=== PATIENT | male | born 1980 | race Caucasian/White ===

== ENCOUNTER 2017-10-05 22:50 | Observation (INO) | payer MEDICAID ==
[~2017-10-05] VITALS: Ht 175.3 cm; Wt 80.3 kg
[~2017-10-05 22:50] MED LIST: ABILIFY MAINTENA IM; ARIP10TA33 PO; ARIP15TA3 PO; ARIP20TA5 PO; CARB200T4 PO; DOXE10CA PO; FEXO1TAB PO; GABA300C10 PO; HYDR50CA2 PO; INSU100C SQ-INSULIN; INSU100I18 SQ-INSULIN; INSU100V8 SQ; METF500T PO; METF500T5 PO; SIMV40TA3 PO; ZIPR40CA2 PO
[2017-10-05] MEDS ORDERED: LORazepam 1MG TABLET PO ONE (23:30)
[2017-10-05 23:38] LABS: BASOPHILS # (AUTO) 0.09 x10^3/uL (0-0.1); BASOPHILS % (AUTO) 1 % (0-1); EOSINOPHILS # (AUTO) 0.29 x10^3/uL (0-0.4); EOSINOPHILS % (AUTO) 3 % (1-7); LYMPHOCYTES # (AUTO) 2.44 x10^3/uL (1-3.4); LYMPHOCYTES % (AUTO) 25 % (22-44); MD NO; MEAN CORPUSCULAR HEMOGLOBIN 30.7 pg (27.5-34.5); MEAN CORPUSCULAR HGB CONC 34.1 g/dL (33.2-36.2); MONOCYTES # (AUTO) 0.74 x10^3/uL (0.2-0.8); MONOCYTES % (AUTO) 8 % (2-9); NEUTROPHILS # (AUTO) 6.28 x10^3/uL (1.8-6.8); NEUTROPHILS % (AUTO) 64 % (42-75); PLATELET COUNT 257 x10^3/uL (130-400); RED CELL DISTRIBUTION WIDTH 14.2 % (9.4-14.8)
[2017-10-05 23:48] LABS: ALANINE AMINOTRANSFERASE 40 U/L (12-78); ALBUMIN 3.6 g/dL (3.4-5.0); ANION GAP 3 mmol/L (5-15); CALCIUM 8.7 mg/dL (8.5-10.1); CHLORIDE 106 mmol/L (98-107); CREATININE 1.02 mg/dL (0.7-1.3); SALICYLATE LEVEL 2.4 mg/dL (2.8-20.0)
[2017-10-05 23:49] LABS: AMPHETAMINE SCREEN, URINE Negative (Negative); BARBITURATE SCREEN, URINE Negative (Negative); BENZODIAZEPINE SCREEN, URINE Negative (Negative); CANNABINOID SCREEN, URINE Positive (Negative); COCAINE SCREEN, URINE Negative (Negative); METHADONE SCREEN, URINE Negative (Negative); OPIATE SCREEN, URINE Negative (Negative)
[2017-10-05 23:50] LABS: ALKALINE PHOSPHATASE 79 U/L (45-117); BILIRUBIN,TOTAL 0.3 mg/dL (0.2-1.0); TOTAL PROTEIN 6.8 g/dL (6.4-8.2)
[2017-10-05 23:55] LABS: ACETAMINOPHEN < 2 mcg/mL (10-30)
[2017-10-06] MEDS ORDERED: BISACODYL 10 MG SUPP PR PRN (08:30)
[2017-10-06] MEDS ORDERED: LORazepam 1MG TABLET PO PRN (08:30)
[2017-10-06] MEDS ORDERED: ONDANSETRON ODT 4 MG PO PRN (08:30)
[2017-10-06] MEDS ORDERED: POLYETHYLENE GLYCOL 17 GM PACKET PO PRN (08:30)
[2017-10-06] MEDS ORDERED: ACETAMINOPHEN 325 MG TABLET PO PRN (08:30)
[2017-10-06] MEDS ORDERED: DOCUSATE 100 MG CAPSULE PO PRN (08:30)
[2017-10-06] MEDS ORDERED: ARIPIPRAZOLE 10 MG TABLET PO PRN (08:30)
[2017-10-06 10:10] VITALS: BP 132/86
[2017-10-06] MEDS: INSULIN REGULAR 100 UNITS/ML, 3ML VIAL SQ-INSULIN SCH ×3 (12:34→20:12)
[2017-10-06] MEDS: metFORMIN 500 MG TABLET PO SCH (17:32)
[2017-10-06 19:20] VITALS: BP 97/61
[2017-10-06] MEDS ORDERED: INSULIN GLARGINE 100 UNITS/ML, PEN SQ-INSULIN SCH (21:00)
[2017-10-07] MEDS: INSULIN REGULAR 100 UNITS/ML, 3ML VIAL SQ-INSULIN SCH ×2 (07:00→11:00)
[2017-10-07] MEDS: metFORMIN 500 MG TABLET PO SCH (07:35)
[2017-10-07 07:55] VITALS: BP 124/73
== END 2017-10-07 13:30 ==
LOC: ED 23:46 → EDIP 10-06 07:58 → 2N 10-06 10:08
PROVIDERS: ADMIT Hospitalist; ATTEND Hospitalist
DX: R45.851 Suicidal ideations (principal); E03.9 Hypothyroidism, unspecified; I11.9 Hypertensive heart disease without heart failure; E78.5 Hyperlipidemia, unspecified; E11.65 Type 2 diabetes mellitus with hyperglycemia; E78.00 Pure hypercholesterolemia, unspecified; F12.90 Cannabis use, unspecified, uncomplicated; F17.210 Nicotine dependence, cigarettes, uncomplicated; F25.9 Schizoaffective disorder, unspecified; F31.9 Bipolar disorder, unspecified; R45.850 Homicidal ideations; Z82.5 Family history of asthma and other chronic lower respiratory diseases; Z83.3 Family history of diabetes mellitus; Z91.5 Personal history of self-harm; Z79.4 Long term (current) use of insulin
CPT/HCPCS: 36415; 80053; 80307; 80329; 82962; 84443; 85025; 96372; 99285; G0378; J1815; G0480

== ENCOUNTER 2017-11-24 23:35 | Observation (INO) | payer MEDICAID ==
[~2017-11-24] VITALS: Ht 175.3 cm; Wt 80.5 kg
[~2017-11-24 23:35] MED LIST changes: +METF500T17 PO; -METF500T5 PO
[2017-11-24] MEDS ORDERED: ZIPRASIDONE 20MG CAPSULE ONE (23:58)
[2017-11-25] MEDS ORDERED: ZIPRASIDONE 20MG CAPSULE PO ONE
[2017-11-25 00:12] LABS: BASOPHILS # (AUTO) 0.09 x10^3/uL (0-0.1); BASOPHILS % (AUTO) 1 % (0-1); EOSINOPHILS # (AUTO) 0.16 x10^3/uL (0-0.4); EOSINOPHILS % (AUTO) 2 % (1-7); LYMPHOCYTES % (AUTO) 31 % (22-44); MD NO; MEAN CORPUSCULAR HEMOGLOBIN 30.6 pg (27.5-34.5); MEAN CORPUSCULAR HGB CONC 34.2 g/dL (33.2-36.2); MEAN CORPUSCULAR VOLUME 89.6 fL (81-97); MEAN PLATELET VOLUME 8.2 fL (7.4-10.4); MONOCYTES # (AUTO) 0.66 x10^3/uL (0.2-0.8); MONOCYTES % (AUTO) 6 % (2-9); NEUTROPHILS # (AUTO) 6.42 x10^3/uL (1.8-6.8); NEUTROPHILS % (AUTO) 60 % (42-75); PLATELET COUNT 281 x10^3/uL (130-400); RED BLOOD COUNT 5.66 x10^6/uL (4.38-5.82); RED CELL DISTRIBUTION WIDTH 12.7 % (9.4-14.8)
[2017-11-25 00:20] LABS: ALANINE AMINOTRANSFERASE 34 U/L (12-78); ALBUMIN 3.9 g/dL (3.4-5.0); ANION GAP 8 mmol/L (5-15); CALCIUM 9.1 mg/dL (8.5-10.1); CHLORIDE 101 mmol/L (98-107); CREATININE 0.92 mg/dL (0.7-1.3); SALICYLATE LEVEL 2.5 mg/dL (2.8-20.0)
[2017-11-25 00:22] LABS: AMPHETAMINE SCREEN, URINE Negative (Negative); BARBITURATE SCREEN, URINE Negative (Negative); BENZODIAZEPINE SCREEN, URINE Negative (Negative); CANNABINOID SCREEN, URINE Negative (Negative); COCAINE SCREEN, URINE Negative (Negative); METHADONE SCREEN, URINE Negative (Negative); OPIATE SCREEN, URINE Negative (Negative)
[2017-11-25 00:22] LABS: ALKALINE PHOSPHATASE 146 U/L (45-117); BILIRUBIN,TOTAL 0.3 mg/dL (0.2-1.0); TOTAL PROTEIN 7.9 g/dL (6.4-8.2)
[2017-11-25 00:24] LABS: ACETAMINOPHEN < 2 mcg/mL (10-30)
[2017-11-25] MEDS ORDERED: POLYETHYLENE GLYCOL 17 GM PACKET PO PRN (05:30)
[2017-11-25] MEDS ORDERED: ACETAMINOPHEN 325 MG TABLET PO PRN (05:30)
[2017-11-25] MEDS ORDERED: ZIPRASIDONE 20 MG INJ IM PRN (05:30)
[2017-11-25 05:55] VITALS: BP 98/62
[2017-11-25] MEDS ORDERED: HOLD COUMADIN MC PRN (08:00)
[2017-11-25 08:14] VITALS: BP 106/67
[2017-11-25] MEDS: INSULIN REGULAR 100 UNITS/ML, 3ML VIAL SQ-INSULIN SCH ×4 (08:29→20:59)
[2017-11-25] MEDS: metFORMIN 500 MG TABLET PO SCH (16:46)
[2017-11-25 19:17] VITALS: BP 119/77
[2017-11-25] MEDS: ONDANSETRON ODT 4 MG PO PRN (19:41)
[2017-11-25] MEDS: INSULIN GLARGINE 100 UNITS/ML, PEN SQ-INSULIN SCH (20:59)
[2017-11-26 08:00] VITALS: BP 133/83
[2017-11-26] MEDS: INSULIN REGULAR 100 UNITS/ML, 3ML VIAL SQ-INSULIN SCH ×4 (08:12→21:00)
[2017-11-26] MEDS: metFORMIN 500 MG TABLET PO SCH ×2 (08:19→17:00)
[2017-11-26] MEDS: ONDANSETRON ODT 4 MG PO PRN (14:34)
[2017-11-26 19:44] VITALS: BP 115/77
[2017-11-26] MEDS: INSULIN GLARGINE 100 UNITS/ML, PEN SQ-INSULIN SCH (21:00)
== END 2017-11-27 00:30 ==
LOC: ED 11-25 01:05 → EDIP 11-25 01:10 → ED 11-25 01:21 → 2N 11-25 05:53
PROVIDERS: ADMIT Hospitalist; ATTEND Hospitalist
DX: R45.851 Suicidal ideations (principal); E03.9 Hypothyroidism, unspecified; E11.9 Type 2 diabetes mellitus without complications; E78.00 Pure hypercholesterolemia, unspecified; F25.9 Schizoaffective disorder, unspecified; F31.9 Bipolar disorder, unspecified; F41.9 Anxiety disorder, unspecified; I10 Essential (primary) hypertension
CPT/HCPCS: 36415; 80053; 80307; 80329; 82962; 83036; 85025; 96372; 99285; G0378; J1815; Q0162; G0480

== ENCOUNTER 2017-12-11 07:47 | Emergency (ER) | payer MEDICAID ==
[~2017-12-11] VITALS: Ht 175.3 cm; Wt 71.9 kg
[2017-12-11] MEDS ORDERED: ZIPRASIDONE 20 MG INJ IM ONE ×2 (08:00→08:21)
[2017-12-11 08:17] LABS: BASOPHILS # (AUTO) 0.04 x10^3/uL (0-0.1); BASOPHILS % (AUTO) 0 % (0-1); EOSINOPHILS % (AUTO) 0 % (1-7); LYMPHOCYTES # (AUTO) 1.87 x10^3/uL (1-3.4); LYMPHOCYTES % (AUTO) 11 % (22-44); MD NO; MEAN CORPUSCULAR HEMOGLOBIN 29.7 pg (27.5-34.5); MEAN CORPUSCULAR HGB CONC 33.8 g/dL (33.2-36.2); MEAN CORPUSCULAR VOLUME 88.1 fL (81-97); MEAN PLATELET VOLUME 7.4 fL (7.4-10.4); MONOCYTES # (AUTO) 0.89 x10^3/uL (0.2-0.8); MONOCYTES % (AUTO) 5 % (2-9); NEUTROPHILS # (AUTO) 14.76 x10^3/uL (1.8-6.8); NEUTROPHILS % (AUTO) 84 % (42-75); PLATELET COUNT 318 x10^3/uL (130-400); RED BLOOD COUNT 5.89 x10^6/uL (4.38-5.82); RED CELL DISTRIBUTION WIDTH 12.4 % (9.4-14.8)
[2017-12-11 08:29] LABS: ALBUMIN 4.2 g/dL (3.4-5.0); ANION GAP 14 mmol/L (5-15); CALCIUM 9.2 mg/dL (8.5-10.1); CHLORIDE 104 mmol/L (98-107)
[2017-12-11 08:30] LABS: SALICYLATE LEVEL < 1.7 mg/dL (2.8-20.0)
[2017-12-11] MEDS ORDERED: PLEASE ENTER HEIGHT AND WEIGHT MC SCH (08:30)
[2017-12-11 08:32] LABS: ALANINE AMINOTRANSFERASE 60 U/L (12-78); ALKALINE PHOSPHATASE 91 U/L (45-117); BILIRUBIN,TOTAL 0.4 mg/dL (0.2-1.0); CREATININE 0.84 mg/dL (0.7-1.3); TOTAL PROTEIN 8.2 g/dL (6.4-8.2)
[2017-12-11 08:34] LABS: ACETAMINOPHEN < 2 mcg/mL (10-30)
[2017-12-11 08:38] LABS: AMPHETAMINE SCREEN, URINE Negative (Negative); BARBITURATE SCREEN, URINE Negative (Negative); BENZODIAZEPINE SCREEN, URINE Negative (Negative); CANNABINOID SCREEN, URINE Negative (Negative); COCAINE SCREEN, URINE Negative (Negative); METHADONE SCREEN, URINE Negative (Negative); OPIATE SCREEN, URINE Negative (Negative)
[2017-12-11 09:00] LABS: MICROSCOPIC INDICATED
[2017-12-11 09:15] LABS: CULTURE INDICATED? NO
[2017-12-11 12:28] LABS: BASOPHILS # (AUTO) 0.07 x10^3/uL (0-0.1); BASOPHILS % (AUTO) 1 % (0-1); EOSINOPHILS # (AUTO) 0.02 x10^3/uL (0-0.4); EOSINOPHILS % (AUTO) 0 % (1-7); LYMPHOCYTES # (AUTO) 2.79 x10^3/uL (1-3.4); LYMPHOCYTES % (AUTO) 20 % (22-44); MD NO; MEAN CORPUSCULAR HEMOGLOBIN 30.4 pg (27.5-34.5); MEAN CORPUSCULAR HGB CONC 34.1 g/dL (33.2-36.2); MEAN CORPUSCULAR VOLUME 89.2 fL (81-97); MEAN PLATELET VOLUME 7.8 fL (7.4-10.4); MONOCYTES # (AUTO) 1.03 x10^3/uL (0.2-0.8); MONOCYTES % (AUTO) 7 % (2-9); NEUTROPHILS # (AUTO) 10.44 x10^3/uL (1.8-6.8); NEUTROPHILS % (AUTO) 73 % (42-75); PLATELET COUNT 301 x10^3/uL (130-400); RED BLOOD COUNT 5.48 x10^6/uL (4.38-5.82); RED CELL DISTRIBUTION WIDTH 12.5 % (9.4-14.8)
[2017-12-11] MEDS ORDERED: LORazepam 1MG TABLET PO ONE (13:00)
[2017-12-11 14:18] VITALS: BP 131/72
== END 2017-12-11 14:25 | disposition home or self-care (01) ==
LOC: ED 08:48
DX: F20.9 Schizophrenia, unspecified (principal); F29 Unspecified psychosis not due to a substance or known physiological condition; F32.9 Major depressive disorder, single episode, unspecified; F17.200 Nicotine dependence, unspecified, uncomplicated
CPT/HCPCS: 36415; 80053; 80307; 80329; 81001; 85025; 96372; 99284; J3486; G0480

== ENCOUNTER 2017-12-12 19:35 | Emergency (ER) | payer MEDICAID ==
[~2017-12-12] VITALS: Ht 172.7 cm; Wt 81.7 kg
[2017-12-12 22:19] VITALS: BP 150/72
[2017-12-23] MEDS ORDERED: INSU100I13 SQ-INSULIN (11:51)
[2017-12-23] MEDS ORDERED: LURA20TA PO (11:51)
[2017-12-23] MEDS ORDERED: IBUP-1484 PO (11:51)
[2017-12-23] MEDS ORDERED: LORA-446 PO (11:51)
[2017-12-23] MEDS ORDERED: INSU100I11 SQ-INSULIN (11:51)
[2017-12-23] MEDS ORDERED: ARIP10TA33 PO (11:51)
[2017-12-23] MEDS ORDERED: METF500T PO (11:51)
== END 2017-12-12 22:23 | disposition home or self-care (01) ==
LOC: ED 22:16
DX: F20.9 Schizophrenia, unspecified (principal); Z72.9 Problem related to lifestyle, unspecified; F31.9 Bipolar disorder, unspecified; Z88.8 Allergy status to other drugs, medicaments and biological substances
CPT/HCPCS: 82962; 99283; 99284

== ENCOUNTER 2018-01-07 16:42 | Observation (INO) | payer MEDICAID ==
[~2018-01-07] VITALS: Ht 175.3 cm; Wt 81.0 kg
[~2018-01-07 16:42] MED LIST changes: +IBUP-1484 PO; +INSU100I11 SQ-INSULIN; +INSU100I13 SQ-INSULIN; +LORA-446 PO; +LURA20TA PO
[2018-01-07 17:14] LABS: BASOPHILS # (AUTO) 0.06 x10^3/uL (0-0.1); BASOPHILS % (AUTO) 1 % (0-1); EOSINOPHILS # (AUTO) 0.13 x10^3/uL (0-0.4); EOSINOPHILS % (AUTO) 1 % (1-7); LYMPHOCYTES % (AUTO) 15 % (22-44); MD NO; MEAN CORPUSCULAR HEMOGLOBIN 30.2 pg (27.5-34.5); MEAN CORPUSCULAR HGB CONC 33.8 g/dL (33.2-36.2); MEAN CORPUSCULAR VOLUME 89.6 fL (81-97); MEAN PLATELET VOLUME 7.4 fL (7.4-10.4); MONOCYTES # (AUTO) 0.82 x10^3/uL (0.2-0.8); MONOCYTES % (AUTO) 6 % (2-9); NEUTROPHILS # (AUTO) 10.55 x10^3/uL (1.8-6.8); NEUTROPHILS % (AUTO) 78 % (42-75); PLATELET COUNT 326 x10^3/uL (130-400); RED BLOOD COUNT 5.17 x10^6/uL (4.38-5.82); RED CELL DISTRIBUTION WIDTH 13.2 % (9.4-14.8)
[2018-01-07] MEDS ORDERED: OLANZAPINE 5 MG TABLET PO STA (17:22)
[2018-01-07] MEDS ORDERED: OLANZAPINE 5 MG TABLET ONE (17:25)
[2018-01-07] MEDS ORDERED: LORazepam 2 MG/ML, 1ML ONE (17:25)
[2018-01-07 17:26] LABS: ALANINE AMINOTRANSFERASE 57 U/L (12-78); ALBUMIN 3.8 g/dL (3.4-5.0); ANION GAP 8 mmol/L (5-15); CHLORIDE 103 mmol/L (98-107); SALICYLATE LEVEL 1.9 mg/dL (2.8-20.0)
[2018-01-07 17:28] LABS: ALKALINE PHOSPHATASE 101 U/L (45-117); BILIRUBIN,TOTAL 0.3 mg/dL (0.2-1.0); CREATININE 0.82 mg/dL (0.7-1.3); TOTAL PROTEIN 7.5 g/dL (6.4-8.2)
[2018-01-07 17:29] LABS: ACETAMINOPHEN < 2 mcg/mL (10-30)
[2018-01-07] MEDS ORDERED: LORazepam 2 MG/ML, 1ML IM ONE (17:30)
[2018-01-07 18:03] LABS: MICROSCOPIC NOT IND
[2018-01-07 18:08] LABS: CULTURE INDICATED? NO
[2018-01-07 18:28] LABS: AMPHETAMINE SCREEN, URINE Negative (Negative); BARBITURATE SCREEN, URINE Negative (Negative); BENZODIAZEPINE SCREEN, URINE Negative (Negative); CANNABINOID SCREEN, URINE Negative (Negative); COCAINE SCREEN, URINE Negative (Negative); METHADONE SCREEN, URINE Negative (Negative); OPIATE SCREEN, URINE Negative (Negative)
[2018-01-08] MEDS ORDERED: ARIPIPRAZOLE 10 MG TABLET ONE (09:28)
[2018-01-08] MEDS ORDERED: ONDANSETRON ODT 4 MG PO PRN (09:30)
[2018-01-08] MEDS ORDERED: DOCUSATE 100 MG CAPSULE PO PRN (09:30)
[2018-01-08] MEDS ORDERED: INSULIN REGULAR 100 UNITS/ML, 3ML VIAL ONE (11:39)
[2018-01-08] MEDS: INSULIN REGULAR 100 UNITS/ML, 3ML VIAL SQ-INSULIN SCH ×3 (11:45→20:14)
[2018-01-08 16:47] VITALS: BP 128/92
[2018-01-08] MEDS: metFORMIN 500 MG TABLET PO SCH (16:59)
[2018-01-08] MEDS: IBUPROFEN 200 MG TABLET PO PRN (16:59)
[2018-01-08] MEDS: LURASIDONE 20 MG TABLET PO SCH (17:00)
[2018-01-08 19:13] VITALS: BP 109/66
[2018-01-08] MEDS: INSULIN GLARGINE 100 UNITS/ML, PEN SQ-INSULIN SCH (20:12)
[2018-01-09 05:42] LABS: BASOPHILS # (AUTO) 0.05 x10^3/uL (0-0.1); BASOPHILS % (AUTO) 1 % (0-1); EOSINOPHILS # (AUTO) 0.23 x10^3/uL (0-0.4); EOSINOPHILS % (AUTO) 4 % (1-7); LYMPHOCYTES # (AUTO) 2.39 x10^3/uL (1-3.4); LYMPHOCYTES % (AUTO) 37 % (22-44); MD NO; MEAN CORPUSCULAR HEMOGLOBIN 30.2 pg (27.5-34.5); MEAN CORPUSCULAR HGB CONC 34.2 g/dL (33.2-36.2); MEAN CORPUSCULAR VOLUME 88.5 fL (81-97); MEAN PLATELET VOLUME 7.9 fL (7.4-10.4); MONOCYTES # (AUTO) 0.49 x10^3/uL (0.2-0.8); MONOCYTES % (AUTO) 8 % (2-9); NEUTROPHILS # (AUTO) 3.29 x10^3/uL (1.8-6.8); NEUTROPHILS % (AUTO) 51 % (42-75); PLATELET COUNT 254 x10^3/uL (130-400); RED BLOOD COUNT 5.05 x10^6/uL (4.38-5.82); RED CELL DISTRIBUTION WIDTH 13.4 % (9.4-14.8)
[2018-01-09] MEDS: INSULIN REGULAR 100 UNITS/ML, 3ML VIAL SQ-INSULIN SCH ×4 (08:08→22:21)
[2018-01-09] MEDS: LURASIDONE 20 MG TABLET PO SCH ×2 (08:10→16:22)
[2018-01-09] MEDS: metFORMIN 500 MG TABLET PO SCH ×2 (08:10→16:21)
[2018-01-09] MEDS: ARIPIPRAZOLE 10 MG TABLET PO SCH (08:12)
[2018-01-09 08:29] VITALS: BP 120/78
[2018-01-09] MEDS: GABAPENTIN 100 MG CAPSULE PO SCH ×3 (12:20→22:15)
[2018-01-09 19:53] VITALS: BP 120/69
[2018-01-09] MEDS: IBUPROFEN 200 MG TABLET PO PRN (22:15)
[2018-01-09] MEDS: INSULIN GLARGINE 100 UNITS/ML, PEN SQ-INSULIN SCH (22:16)
[2018-01-10] MEDS: ACETAMINOPHEN 325 MG TABLET PO PRN (01:57)
[2018-01-10] MEDS: INSULIN REGULAR 100 UNITS/ML, 3ML VIAL SQ-INSULIN SCH ×4 (07:00→20:17)
[2018-01-10] MEDS: GABAPENTIN 100 MG CAPSULE PO SCH ×4 (07:45→20:17)
[2018-01-10] MEDS: LURASIDONE 20 MG TABLET PO SCH ×2 (07:45→16:37)
[2018-01-10] MEDS: metFORMIN 500 MG TABLET PO SCH ×2 (07:46→16:34)
[2018-01-10] MEDS: ARIPIPRAZOLE 10 MG TABLET PO SCH (07:46)
[2018-01-10] MEDS: IBUPROFEN 200 MG TABLET PO PRN ×2 (08:21→14:50)
[2018-01-10 08:38] VITALS: BP 142/86
[2018-01-10 19:55] VITALS: BP 121/73
[2018-01-10] MEDS: INSULIN GLARGINE 100 UNITS/ML, PEN SQ-INSULIN SCH (20:15)
[2018-01-11] MEDS: ACETAMINOPHEN 325 MG TABLET PO PRN ×2 (00:51→12:37)
[2018-01-11] MEDS: GABAPENTIN 100 MG CAPSULE PO SCH ×4 (07:46→20:58)
[2018-01-11 07:55] VITALS: BP 139/84
[2018-01-11] MEDS: INSULIN REGULAR 100 UNITS/ML, 3ML VIAL SQ-INSULIN SCH ×4 (07:55→20:58)
[2018-01-11] MEDS: LURASIDONE 20 MG TABLET PO SCH ×2 (08:18→16:20)
[2018-01-11] MEDS: metFORMIN 500 MG TABLET PO SCH ×2 (08:18→16:20)
[2018-01-11] MEDS: ARIPIPRAZOLE 10 MG TABLET PO SCH (08:18)
[2018-01-11] MEDS: CETIRIZINE 10 MG TABLET PO SCH (17:49)
[2018-01-11 20:36] VITALS: BP 111/67
[2018-01-11] MEDS: LORazepam 1MG TABLET PO PRN (20:58)
[2018-01-11] MEDS: INSULIN GLARGINE 100 UNITS/ML, PEN SQ-INSULIN SCH (20:58)
[2018-01-12] MEDS: IBUPROFEN 200 MG TABLET PO PRN ×3 (06:22→21:34)
[2018-01-12] MEDS: GABAPENTIN 100 MG CAPSULE PO SCH ×4 (06:35→21:08)
[2018-01-12 08:05] VITALS: BP 119/77
[2018-01-12] MEDS: INSULIN REGULAR 100 UNITS/ML, 3ML VIAL SQ-INSULIN SCH ×4 (08:16→21:08)
[2018-01-12] MEDS: metFORMIN 500 MG TABLET PO SCH ×2 (08:17→16:46)
[2018-01-12] MEDS: LURASIDONE 20 MG TABLET PO SCH ×2 (08:17→16:46)
[2018-01-12] MEDS: ARIPIPRAZOLE 10 MG TABLET PO SCH (08:17)
[2018-01-12] MEDS: CETIRIZINE 10 MG TABLET PO SCH (08:17)
[2018-01-12] MEDS: FLUTICASONE NASAL SPRAY 16GM NAS SCH (08:20)
[2018-01-12 19:58] VITALS: BP 99/61
[2018-01-12] MEDS: INSULIN GLARGINE 100 UNITS/ML, PEN SQ-INSULIN SCH (21:08)
[2018-01-13] MEDS: INSULIN REGULAR 100 UNITS/ML, 3ML VIAL SQ-INSULIN SCH ×4 (07:00→20:58)
[2018-01-13] MEDS: CETIRIZINE 10 MG TABLET PO SCH (08:05)
[2018-01-13] MEDS: GABAPENTIN 100 MG CAPSULE PO SCH ×4 (08:05→20:59)
[2018-01-13] MEDS: ARIPIPRAZOLE 10 MG TABLET PO SCH (08:05)
[2018-01-13] MEDS: metFORMIN 500 MG TABLET PO SCH ×2 (08:05→16:44)
[2018-01-13] MEDS: LURASIDONE 20 MG TABLET PO SCH ×2 (08:05→16:44)
[2018-01-13 08:20] VITALS: BP 112/77
[2018-01-13] MEDS: FLUTICASONE NASAL SPRAY 16GM NAS SCH (08:40)
[2018-01-13] MEDS: IBUPROFEN 200 MG TABLET PO PRN ×2 (09:22→19:34)
[2018-01-13 19:19] VITALS: BP 103/60
[2018-01-13] MEDS: INSULIN GLARGINE 100 UNITS/ML, PEN SQ-INSULIN SCH (20:59)
[2018-01-14] MEDS: LURASIDONE 20 MG TABLET PO SCH ×2 (07:37→17:31)
[2018-01-14] MEDS: GABAPENTIN 100 MG CAPSULE PO SCH ×4 (07:37→20:30)
[2018-01-14] MEDS: metFORMIN 500 MG TABLET PO SCH ×2 (07:37→17:31)
[2018-01-14] MEDS: INSULIN REGULAR 100 UNITS/ML, 3ML VIAL SQ-INSULIN SCH ×4 (07:42→20:21)
[2018-01-14 08:23] VITALS: BP 103/66
[2018-01-14] MEDS: ARIPIPRAZOLE 10 MG TABLET PO SCH (08:34)
[2018-01-14] MEDS: CETIRIZINE 10 MG TABLET PO SCH (08:34)
[2018-01-14] MEDS: FLUTICASONE NASAL SPRAY 16GM NAS SCH (09:07)
[2018-01-14 19:41] VITALS: BP 120/82
[2018-01-14] MEDS: IBUPROFEN 200 MG TABLET PO PRN (19:49)
[2018-01-14] MEDS: INSULIN GLARGINE 100 UNITS/ML, PEN SQ-INSULIN SCH (20:30)
[2018-01-14] MEDS: NEOSPORIN OINT, 15GM TP SCH (21:00)
[2018-01-15] MEDS: GABAPENTIN 100 MG CAPSULE PO SCH ×4 (05:32→20:21)
[2018-01-15 07:34] VITALS: BP 106/73
[2018-01-15] MEDS: INSULIN REGULAR 100 UNITS/ML, 3ML VIAL SQ-INSULIN SCH ×4 (07:53→20:27)
[2018-01-15] MEDS: CETIRIZINE 10 MG TABLET PO SCH (07:53)
[2018-01-15] MEDS: metFORMIN 500 MG TABLET PO SCH ×2 (07:54→16:39)
[2018-01-15] MEDS: ARIPIPRAZOLE 10 MG TABLET PO SCH (07:54)
[2018-01-15] MEDS: LURASIDONE 20 MG TABLET PO SCH ×2 (07:54→16:40)
[2018-01-15] MEDS: NEOSPORIN OINT, 15GM TP SCH ×3 (07:55→21:00)
[2018-01-15] MEDS: FLUTICASONE NASAL SPRAY 16GM NAS SCH (08:44)
[2018-01-15 19:36] VITALS: BP 110/73
[2018-01-15] MEDS: LORazepam 1MG TABLET PO PRN (20:21)
[2018-01-15] MEDS: INSULIN GLARGINE 100 UNITS/ML, PEN SQ-INSULIN SCH (20:21)
[2018-01-16] MEDS: IBUPROFEN 200 MG TABLET PO PRN (02:49)
[2018-01-16] MEDS: CETIRIZINE 10 MG TABLET PO SCH ×2 (07:23→07:59)
[2018-01-16 07:24] VITALS: BP 103/71
[2018-01-16] MEDS: INSULIN REGULAR 100 UNITS/ML, 3ML VIAL SQ-INSULIN SCH (07:58)
[2018-01-16] MEDS: LURASIDONE 20 MG TABLET PO SCH (07:58)
[2018-01-16] MEDS: NEOSPORIN OINT, 15GM TP SCH (07:59)
[2018-01-16] MEDS: GABAPENTIN 100 MG CAPSULE PO SCH (07:59)
[2018-01-16] MEDS: ARIPIPRAZOLE 10 MG TABLET PO SCH (07:59)
[2018-01-16] MEDS: metFORMIN 500 MG TABLET PO SCH (07:59)
[2018-01-16] MEDS: FLUTICASONE NASAL SPRAY 16GM NAS SCH (08:41)
== END 2018-01-16 10:31 | disposition home or self-care (01) ==
LOC: ED 17:07 → EDIP 01-08 03:36 → 2N 01-08 16:44
PROVIDERS: ADMIT Internal Medicine; ATTEND Internal Medicine
DX: F23 Brief psychotic disorder (principal); D72.829 Elevated white blood cell count, unspecified; E11.9 Type 2 diabetes mellitus without complications; I11.9 Hypertensive heart disease without heart failure; E78.5 Hyperlipidemia, unspecified; J00 Acute nasopharyngitis [common cold]; F17.210 Nicotine dependence, cigarettes, uncomplicated; E03.9 Hypothyroidism, unspecified; F25.9 Schizoaffective disorder, unspecified; F31.9 Bipolar disorder, unspecified; Z79.4 Long term (current) use of insulin; Z91.14 Patient's other noncompliance with medication regimen; Z91.83 Wandering in diseases classified elsewhere; Z83.3 Family history of diabetes mellitus; Z82.5 Family history of asthma and other chronic lower respiratory diseases
CPT/HCPCS: 36415; 80053; 80307; 80329; 81003; 82962; 84443; 85025; 96372; 99285; G0378; J1815; J2060; G0480

== ENCOUNTER 2018-01-17 12:43 | Observation (INO) | payer MEDICAID ==
[~2018-01-17] VITALS: Ht 175.3 cm; Wt 79.4 kg
[2018-01-17] MEDS ORDERED: ZIPRASIDONE 20 MG INJ IM ONE ×2 (13:30→13:44)
[2018-01-17 13:34] LABS: BASOPHILS # (AUTO) 0.14 x10^3/uL (0-0.1); BASOPHILS % (AUTO) 1 % (0-1); EOSINOPHILS # (AUTO) 0.01 x10^3/uL (0-0.4); EOSINOPHILS % (AUTO) 0 % (1-7); LYMPHOCYTES # (AUTO) 2.11 x10^3/uL (1-3.4); LYMPHOCYTES % (AUTO) 15 % (22-44); MD NO; MEAN CORPUSCULAR HEMOGLOBIN 30.2 pg (27.5-34.5); MEAN CORPUSCULAR HGB CONC 34.3 g/dL (33.2-36.2); MEAN CORPUSCULAR VOLUME 88.3 fL (81-97); MEAN PLATELET VOLUME 7.9 fL (7.4-10.4); MONOCYTES # (AUTO) 1.19 x10^3/uL (0.2-0.8); MONOCYTES % (AUTO) 8 % (2-9); NEUTROPHILS # (AUTO) 10.88 x10^3/uL (1.8-6.8); NEUTROPHILS % (AUTO) 76 % (42-75); PLATELET COUNT 290 x10^3/uL (130-400); RED BLOOD COUNT 5.56 x10^6/uL (4.38-5.82); RED CELL DISTRIBUTION WIDTH 12.9 % (9.4-14.8)
[2018-01-17 13:48] LABS: ALBUMIN 4.3 g/dL (3.4-5.0); ANION GAP 8 mmol/L (5-15); CALCIUM 9.7 mg/dL (8.5-10.1); CHLORIDE 103 mmol/L (98-107)
[2018-01-17 13:50] LABS: CREATININE 1.01 mg/dL (0.7-1.3); SALICYLATE LEVEL 1.7 mg/dL (2.8-20.0)
[2018-01-17 13:51] LABS: ACETAMINOPHEN < 2 mcg/mL (10-30)
[2018-01-17 14:03] LABS: AMPHETAMINE SCREEN, URINE Negative (Negative); BARBITURATE SCREEN, URINE Negative (Negative); BENZODIAZEPINE SCREEN, URINE Negative (Negative); CANNABINOID SCREEN, URINE Negative (Negative); COCAINE SCREEN, URINE Negative (Negative); METHADONE SCREEN, URINE Negative (Negative); OPIATE SCREEN, URINE Negative (Negative)
[2018-01-17] MEDS ORDERED: GLUCAGON 1 MG IM PRN (16:30)
[2018-01-17] MEDS ORDERED: DOCUSATE 100 MG CAPSULE PO PRN (16:30)
[2018-01-17] MEDS ORDERED: DEXTROSE 50%, 50ML SYRINGE IVPush PRN (16:30)
[2018-01-17] MEDS ORDERED: DEXTROSE 4 GM TAB.CHEW PO PRN (16:30)
[2018-01-17] MEDS ORDERED: ZIPRASIDONE 20 MG INJ IM PRN (16:30)
[2018-01-17] MEDS ORDERED: ACETAMINOPHEN 325 MG TABLET PO PRN (16:30)
[2018-01-17] MEDS ORDERED: ONDANSETRON ODT 4 MG PO PRN (16:30)
[2018-01-17] MEDS ORDERED: DIPHENHYDRAMINE 50 MG CAPSULE PO PRN (16:30)
[2018-01-17] MEDS: LURASIDONE 20 MG TABLET PO SCH (17:00)
[2018-01-17] MEDS: metFORMIN 500 MG TABLET PO SCH (17:00)
[2018-01-17] MEDS: INSULIN GLARGINE 100 UNITS/ML, PEN SQ-INSULIN SCH (19:56)
[2018-01-17] MEDS ORDERED: DIPHENHYDRAMINE 50 MG CAPSULE ONE (19:58)
[2018-01-17] MEDS: DIPHENHYDRAMINE 50 MG CAPSULE PO PRN (19:59)
[2018-01-17] MEDS: SODIUM CHLORIDE FLUSH 10ML SYR IVF SCH (21:00)
[2018-01-17] MEDS ORDERED: INSULIN LISPRO 100 UNITS/ML, PEN SQ-INSULIN SCH (21:00)
[2018-01-17] MEDS: ZIPRASIDONE 20MG CAPSULE PO PRN (22:02)
[2018-01-17] MEDS: INSULIN REGULAR 100 UNITS/ML, 3ML VIAL SQ-INSULIN SCH (22:27)
[2018-01-18] MEDS: DIPHENHYDRAMINE 50 MG CAPSULE PO PRN (01:34)
[2018-01-18 07:20] VITALS: BP 128/91
[2018-01-18 07:21] LABS: BASOPHILS # (AUTO) 0.04 x10^3/uL (0-0.1); BASOPHILS % (AUTO) 1 % (0-1); EOSINOPHILS # (AUTO) 0.14 x10^3/uL (0-0.4); EOSINOPHILS % (AUTO) 2 % (1-7); LYMPHOCYTES % (AUTO) 37 % (22-44); MD NO; MEAN CORPUSCULAR HEMOGLOBIN 29.7 pg (27.5-34.5); MEAN CORPUSCULAR HGB CONC 33.4 g/dL (33.2-36.2); MEAN PLATELET VOLUME 7.9 fL (7.4-10.4); MONOCYTES # (AUTO) 0.62 x10^3/uL (0.2-0.8); MONOCYTES % (AUTO) 10 % (2-9); NEUTROPHILS # (AUTO) 3.09 x10^3/uL (1.8-6.8); NEUTROPHILS % (AUTO) 50 % (42-75); PLATELET COUNT 265 x10^3/uL (130-400); RED BLOOD COUNT 5.52 x10^6/uL (4.38-5.82); RED CELL DISTRIBUTION WIDTH 13.1 % (9.4-14.8)
[2018-01-18] MEDS: INSULIN REGULAR 100 UNITS/ML, 3ML VIAL SQ-INSULIN SCH ×4 (08:16→20:05)
[2018-01-18] MEDS: LURASIDONE 20 MG TABLET PO SCH ×2 (08:17→16:36)
[2018-01-18] MEDS: ARIPIPRAZOLE 10 MG TABLET PO SCH (08:17)
[2018-01-18] MEDS: metFORMIN 500 MG TABLET PO SCH ×2 (08:17→16:35)
[2018-01-18] MEDS: SODIUM CHLORIDE FLUSH 10ML SYR IVF SCH ×2 (08:45→21:00)
[2018-01-18 19:27] VITALS: BP 125/73
[2018-01-18] MEDS: ZIPRASIDONE 20MG CAPSULE PO PRN (20:24)
[2018-01-18] MEDS: INSULIN GLARGINE 100 UNITS/ML, PEN SQ-INSULIN SCH (20:25)
[2018-01-19] MEDS: ZIPRASIDONE 20MG CAPSULE PO PRN ×2 (02:31→23:21)
[2018-01-19 07:12] LABS: HEMOGLOBIN A1C 9.4 % (4.2-6.3)
[2018-01-19 07:50] VITALS: BP 108/71
[2018-01-19] MEDS: metFORMIN 500 MG TABLET PO SCH ×2 (08:12→16:28)
[2018-01-19] MEDS: LURASIDONE 20 MG TABLET PO SCH ×2 (08:13→16:28)
[2018-01-19] MEDS: ARIPIPRAZOLE 10 MG TABLET PO SCH (08:13)
[2018-01-19] MEDS: INSULIN REGULAR 100 UNITS/ML, 3ML VIAL SQ-INSULIN SCH ×4 (08:14→21:00)
[2018-01-19 19:33] VITALS: BP 126/79
[2018-01-19] MEDS: INSULIN GLARGINE 100 UNITS/ML, PEN SQ-INSULIN SCH (20:52)
[2018-01-20 07:29] VITALS: BP 135/90
[2018-01-20] MEDS: ARIPIPRAZOLE 10 MG TABLET PO SCH (07:48)
[2018-01-20] MEDS: LURASIDONE 20 MG TABLET PO SCH ×2 (07:49→16:37)
[2018-01-20] MEDS: metFORMIN 500 MG TABLET PO SCH ×2 (07:49→16:37)
[2018-01-20] MEDS: INSULIN REGULAR 100 UNITS/ML, 3ML VIAL SQ-INSULIN SCH ×4 (07:51→20:16)
[2018-01-20] MEDS: INSULIN GLARGINE 100 UNITS/ML, PEN SQ-INSULIN SCH (20:18)
[2018-01-21] MEDS: INSULIN REGULAR 100 UNITS/ML, 3ML VIAL SQ-INSULIN SCH (07:25)
[2018-01-21 07:42] VITALS: BP 113/80
[2018-01-21] MEDS: LURASIDONE 20 MG TABLET PO SCH (07:42)
[2018-01-21] MEDS: metFORMIN 500 MG TABLET PO SCH (07:42)
[2018-01-21] MEDS: ARIPIPRAZOLE 10 MG TABLET PO SCH (09:57)
== END 2018-01-21 12:06 ==
LOC: ED 13:45 → EDIP 16:10 → 2N 21:57
PROVIDERS: ADMIT Family Medicine; ATTEND Family Medicine
DX: F29 Unspecified psychosis not due to a substance or known physiological condition (principal); F41.9 Anxiety disorder, unspecified; F22 Delusional disorders; F25.9 Schizoaffective disorder, unspecified; E03.9 Hypothyroidism, unspecified; E11.65 Type 2 diabetes mellitus with hyperglycemia; D72.829 Elevated white blood cell count, unspecified; E78.00 Pure hypercholesterolemia, unspecified; E78.5 Hyperlipidemia, unspecified; F17.200 Nicotine dependence, unspecified, uncomplicated; F31.9 Bipolar disorder, unspecified; I10 Essential (primary) hypertension
CPT/HCPCS: 36415; 80048; 80307; 80329; 82040; 82962; 83036; 85025; 96372; 99284; G0378; J1815; J3486; G0480

== ENCOUNTER 2018-04-29 08:40 | Emergency (ER) | payer MEDICAID ==
[~2018-04-29] VITALS: Ht 175.3 cm; Wt 80.0 kg
--- NOTE | 2018-04-29 08:55 | NUR ---
PT. ARRIVES BY [facility] WITH C/O ETOH USE AND BEING NON-AMBULATORY. PT. ANSWERS QUESTIONS AT HIS CHOOSING. PT.'S PUPILS ARE OTF. LUNGS ARE CTA. ABD. IS SOFT AND FLAT WITH BS + X 4 QUADS. PT. STATES HE IS NON-AMBULATORY. PT. WAS INSTRUCTED TO NOT GET UP WITHOUT ASSISTANCE. SIDERAILS REMAIN UP X 2. DR. LAMBERT AT THE BEDSIDE.
--- NOTE | 2018-04-29 09:37 | NUR ---
PT. IS SLEEPING WITHOUT CONCERNS.
--- NOTE | 2018-04-29 11:50 | NUR ---
PT. WAS GIVEN PO FLUIDS. VITALS MONITORED. FS DONE. PT. IS RESTING WITHOUT CONCERNS.
--- NOTE | 2018-04-29 12:03 | NUR ---
PT. WAS GIVEN DISCHARGE INSTRUCTIONS. PT. STATES, "YOU STOLE MY FUCKING CARD." RN EXPLAINED TO THE PT. THAT ALL OF THE BELONGINGS THAT HE ARRIVED WITH ARE ON THE STAND BY THE STRETCHER. KIRSTEN Krause CALLED REGISTRATION TO SEE IF THE PT.'S ID WAS AT THE REGISTRATION DESK. PT. REMAINS PINK, WARM AND DRY WITH STABLE VITALS.
[2018-04-29 12:05] VITALS: BP 106/64
== END 2018-04-29 12:33 | disposition home or self-care (01) ==
LOC: ED 12:27
DX: F10.220 Alcohol dependence with intoxication, uncomplicated (principal); I10 Essential (primary) hypertension; E11.65 Type 2 diabetes mellitus with hyperglycemia; E78.00 Pure hypercholesterolemia, unspecified; E03.9 Hypothyroidism, unspecified
CPT/HCPCS: 82962; 99283

== ENCOUNTER 2018-05-11 04:41 | Emergency (ER) | payer MEDICAID ==
--- NOTE | 2018-05-11 05:12 | NUR ---
PT NOT IN LOBBY. PER REG, PT WAS SEEN LEAVING LOBBY.
== END 2018-05-11 05:13 | disposition left against medical advice (07) ==
LOC: ED 05:06
DX: Z53.21 Procedure and treatment not carried out due to patient leaving prior to being seen by health care provider (principal)

== ENCOUNTER 2018-11-10 01:32 | Emergency (ER) | payer MEDICAID ==
[~2018-11-10] VITALS: Ht 172.7 cm; Wt 70.9 kg
[~2018-11-10 01:32] MED LIST changes: -IBUP-1484 PO; +IBUP-1902 PO
[2018-11-10 01:57] VITALS: BP 122/68
--- NOTE | 2018-11-10 01:58 | NUR ---
PT A/O X4 AND SPEAKING FULL SENTENCES. PT RAMBLING AND SWEARING AT TIMES. PT STATED "HE WANTS TO LEAVE AND DID NOT WANT TO COME HERE, OMAIRA HAMMER AND ELISE MADE HIM COME TO ER AND HE IS READY TO LEAVE"
== END 2018-11-10 02:02 | disposition home or self-care (01) ==
LOC: ED 01:50
DX: K14.1 Geographic tongue (principal); I10 Essential (primary) hypertension; E11.9 Type 2 diabetes mellitus without complications; E03.9 Hypothyroidism, unspecified; E78.00 Pure hypercholesterolemia, unspecified; F17.200 Nicotine dependence, unspecified, uncomplicated
CPT/HCPCS: 99283